=== PATIENT | female | born 1980 | race Caucasian/White ===

== ENCOUNTER 2017-12-25 06:24 | Day surgery (SDC) | payer OTHER ==
[2017-12-23 14:05] LABS: Hematocrit 42.3 % (36.0-45.0); MCH 32.4 pg (27.0-35.0); MCV 95.9 fL (80-100); RBC Red Blood Cell Count 4.41 M/uL (3.86-4.86)
[2017-12-23 14:06] LABS: Urine Appearance CLEAR; Urine Bilirubin NEGATIVE (NEG); Urine Blood 1+ (NEG); Urine Color YELLOW; Urine Glucose NEGATIVE (NEG); Urine Protein NEGATIVE (NEG); Urine Specific Gravity 1.015 (1.005-1.030); Urine Urobilinogen 0.2 mg/dL (0.2-1.0); Urine pH 5.5 (5.0-7.0)
[2017-12-23 14:06] LABS: Absolute Lymphocytes (CBC) 3.2 K/uL (0.7-4.9); Absolute Monocytes 0.7 K/uL (0.1-1.3); Absolute Neutrophil 6.7 K/uL (1.8-8.0); Basophils % 0.5 % (0-1.3); Eosinophils % 0.6 % (0-4.4); Lymphocytes % 29.9 % (15.3-44.8); MPV 8.1 fL (7.6-11.3); Monocytes % 6.2 % (3.3-12.3)
[2017-12-23 14:07] LABS: Urine Microscopic Reflex ORDER UMIC
[2017-12-23 14:36] LABS: Urine RBC <5 /HPF (NONE SEEN)
[2017-12-23 14:37] LABS: Urine Bacteria NONE SEEN /HPF (<20); Urine Culture Reflex Order REFLEXED
[2017-12-25] MEDS ORDERED: NA CHLORIDE 0.9% 0 ML ONE (06:44)
[2017-12-25] MEDS ORDERED: PROPOFOL 200 MG/20 ML VIAL IV ONE (06:45)
[2017-12-25] MEDS ORDERED: VASOPRESSIN 20 UNIT/ML VIAL ONE (06:45)
[2017-12-25] MEDS ORDERED: ROCURONIUM 50 MG/5 ML VIAL IV ONE ×2 (06:46→08:19)
[2017-12-25] MEDS ORDERED: FENTANYL CITR 250 MCG/5 ML ONE (06:47)
[2017-12-25] MEDS ORDERED: LIDOCAINE 2% MPF 5 ML VIAL ONE (06:47)
[2017-12-25] MEDS ORDERED: ONDANSETRON 4 MG/2 ML VIAL ONE ×2 (06:48→09:37)
[2017-12-25] MEDS ORDERED: SCOPOLAMINE HYDROBROMIDE PATCH TD ONE (07:03)
[2017-12-25] MEDS ORDERED: Ringers Lactate 1,000 ML IV ONE ×2 (07:04→09:35)
[2017-12-25] MEDS ORDERED: MIDAZOLAM HCL 2 MG/2 ML INJ ONE (07:25)
[2017-12-25] MEDS ORDERED: EPHEDRINE SULF 50 MG/5 ML SYR ONE (08:17)
[2017-12-25] MEDS ORDERED: DEXAMETHASONE 10 MG/ML VIAL ONE (08:27)
[2017-12-25] MEDS ORDERED: NS 0.9% VIAL 20 ML ONE (08:37)
[2017-12-25] MEDS ORDERED: Phenylephrine HCl 10 MG/ML 1 ML VIAL ONE (08:37)
[2017-12-25] MEDS ORDERED: MORPHINE 10 MG/ML VIAL ONE (09:13)
--- NOTE | 2017-12-25 09:16 | P.OP ---
Preoperative diagnosis: Possible Appendicitis Postoperative diagnosis: Possible Appendicitis Primary procedure: Laparoscopic Appendectomy Secondary procedure: see Dr. Grace Note Anesthesia: GETA Estimated blood loss: <1cc Specimen: Vermiform Appendix Findings: See Dr. Grace Note Complications: None Transferred to: Recovery Room Condition: Good
[2017-12-25] MEDS ORDERED: Mastisol Adhesive Liq ONE (09:18)
[2017-12-25] MEDS: MEPERIDINE HCL 50 MG/ML AMP ONE ×2 (09:37→09:52)
[2017-12-25] MEDS ORDERED: HYDROMORPHONE HCL 2 MG/ML inj ONE (09:47)
[2017-12-25] MEDS ORDERED: HYDROCODONE/APAP 5/325 MG TAB ONE (10:34)
--- NOTE | 2017-12-25 20:49 | OP ---
Date of Procedure: 12/25/2017 Surgeon: Balbina Grace MD Preoperative Diagnoses: Pelvic pain and heavy periods. Postoperative Diagnoses: Pelvic pain and heavy periods. Procedures Performed: 1.Diagnostic hysteroscopy. 2.Diagnostic laparoscopy and bilateral salpingectomy. Please refer to Dr. Fitzpatrick's dictation on her appendectomy. Anesthesia: General endotracheal. Complications: No complications. Drains: No drains. Specimens: Bilateral tubes, appendix. Condition: Stable. Findings: The ovaries were normal. Tubes had mild cystic change on both sides, very minimally incre ased in vascularity, left more than the right. No clear evidence of hydrosalpinx and no evidence of endometriosis on systematic examination of the entire pelvic cavity or adhesions. Description Of Procedure: After informed consent was verified, the patient was taken back to the OR, placed in supine fashion on the operating table. After general anesthesia was given, she was placed in dorsal lithotomy position. Pelvic exam was performed. Uterus was found to be anteflexed. No ad nexal masses were palpable and uterus was mobile. Lower abdomen, vulva, vagina, and perineum were pr epped and draped in a sterile fashion. Townsend was placed to drain the bladder. Speculum was used to expose the cervix. Anterior lip grasped with 2 Allis clamps. Diagnostic hysteroscopy with SlimLine hysteroscope, 30-degree lens, and normal saline was used to enter the uterine cavity directly under v isualization. The cavity appeared to be completely unremarkable. No evidence of any abnormalities, and the endometrium appeared to be normal without any intracavitary tumors. Both tubal ostia were vi sualized and were unremarkable. Pictures were taken. Scope pulled out. A diagnostic VCare was intr oduced and fixed in place, and this area was draped. A 1 cm infraumbilical incision was made with a scalpel. Using the open laparoscopy technique, fascia was incised, opened, and tagged on both sides with 0 Vicryl sutures. The peritoneum entered bluntly with a finger, and S-retractors placed and then Michelle was introduced. This was fixed in place. Si te of entry was checked and was normal. Upper abdominal surfaces liver, upper peritoneal surfaces, o mentum, all appeared to be unremarkable. The patient was placed in the T-eben. A 5 mm suprapubic an d left lower quadrant ports were placed under direct vision, and the inspection of the entire pelvic cavity systematically from the anterior cul-de-sac, both anterior broad ligaments. Area between the round and the tubes, the area between the tubes and the ovary and the utero-ovarian ligament were all systematically examined and completely unremarkable for endometriosis. Then posterior broad ligamen ts on both sides, posterior lateral verdugo, and posterior cul-de-sac and uterosacral ligaments were al l closely examined without any evidence of endometriosis or scar tissue. The normal attachment of th e sigmoid was present, but no additional scarring. Appendix appeared to be normal, however, given th e patient's pain and no particular etiology, I consulted Dr. Fitzpatrick, who had seen the patient yester day to come in and perform an appendectomy. The ovaries were also closely inspected, there was no evidence of any endometriosis and normal follic ular cyst. Tubes had cystic change and mild inflammation. There was a Falope ring on each side in t he midsection of the tube. I made the decision to remove the tubes because of the mild inflammatory changes and lack of other findings that would explain her pain. In case, there was past salpingitis since the patient was treated for PID and there was endometriosis on biopsy, I prefer to remove her t ubes, as the future source for her pain. So, a 5-mm LigaSure was used to take down the mesosalpinx, the entire fimbriated, and the tube was all taken down to the cornual end. First dissection was perf ormed on the left side, then similar dissection on the right side. Both tubes were removed through t he umbilical trocar after obtaining . At this point in the case was turned over to Dr. Viridiana moreira who finished appendectomy . VCare and Townsend were removed. The patient was recovered from anesthesia and taken to PACU in stable condition. She will follow up with me in 1 week. TRAY/WILMA Voice ID: [id number] Report ID: [id number]
--- NOTE | 2017-12-26 19:34 | OP ---
Date of Procedure: 12/25/2017 Surgeon: Donnell Fitzpatrick MD, Preoperative Diagnosis: Possible appendicitis. Postoperative Diagnosis: Possible appendicitis. Procedure Performed: Laparoscopic appendectomy. Secondary Procedure: I assisted Dr. Grace during her primary procedure. I was a surgical services assistant and that I performed the appendectomy as described above. Please see Dr. Grace's note for full de tails regarding her aspect of the operation. Anesthesia: General endotracheal. Estimated Blood Loss: Less than 1 cc. Specimen: Vermiform appendix. Findings: Please see Dr. Grace's note. Complications: None. Disposition: Transferred to recovery room in good condition. Procedure In Detail: After informed consent was obtained, the patient was had Dr. Grace's portion of the procedure. Please see her note for the prior procedure. At the end of Dr. Grace's proced ure, I was requested to come in. Three ports were in place. I used the existing ports, 1 in the per iumbilical, 1 in the suprapubic, and 1 in the left lower quadrant to create a mesoappendiceal window at the base the of appendix at the confluence of the cecum. I then used the Endo ANDRES 35 blue load, f ired across the base of the appendix with good approximation of the tissues. I then used the LigaSur e device to take the appendix off the mesoappendix with good hemostasis at this time. The base was p laced in EndoCatch bag and removed the umbilical trocar. The area was then copiously irrigated multi ple times until completely clear. I inspected the staple line at this time, which was found to be go od and intact without any evidence of leakage. No additional hemostatic maneuvers required. I then focused on the [address] Grace had some stay sutures in this area, which were prior place d. I then removed the trocar and secured these under direct visualization with good approximation of tissues. I then completely desufflated the abdomen under direct visualization without evidence of c omplication. After placing the patient in neutral position, all trocars then removed. All skin inci sions copiously irrigated and closed with a 4-0 Monocryl in a running fashion. Dermabond placed over top. The patient tolerated the procedure well without evidence of complication and transferred to P ACU in good condition. All counts were correct at the end of the case. JESSICA/WILMA Voice ID: [id number] Report ID: [id number]
== END 2017-12-25 11:30 | disposition home or self-care (01) ==
LOC: OR 06:24
PROVIDERS: ATTEND Obstetrics & Gynecology
PROC: 0DTJ4ZZ Resection of Appendix, Percutaneous Endoscopic Approach (ICD-10-PCS; principal; 2017-12-25 07:30)
PROC: 0UJD8ZZ Inspection of Uterus and Cervix, Via Natural or Artificial Opening Endoscopic (ICD-10-PCS; 2017-12-25 07:30)
PROC: 0UT74ZZ Resection of Bilateral Fallopian Tubes, Percutaneous Endoscopic Approach (ICD-10-PCS; 2017-12-25 07:30)
DX: N92.1 Excessive and frequent menstruation with irregular cycle (principal); R10.2 Pelvic and perineal pain; N94.6 Dysmenorrhea, unspecified; N83.8 Other noninflammatory disorders of ovary, fallopian tube and broad ligament; I10 Essential (primary) hypertension; F41.9 Anxiety disorder, unspecified; F32.9 Major depressive disorder, single episode, unspecified; F17.210 Nicotine dependence, cigarettes, uncomplicated; Z88.3 Allergy status to other anti-infective agents; Z88.6 Allergy status to analgesic agent; Z82.49 Family history of ischemic heart disease and other diseases of the circulatory system; Z80.3 Family history of malignant neoplasm of breast
CPT/HCPCS: 36415; 81003; 81015; 81025; 85025; 86850; 86900; 86901; 87086; 87088; 88302; 88304; 88305; J1100; J1170; J2175; J2250; J2370; J2405

== ENCOUNTER 2018-01-10 07:12 | Emergency (ER) | payer OTHER ==
[2018-01-10 07:55] LABS: Urine Blood TRACE (NEG); Urine Glucose NEGATIVE (NEG); Urine Protein NEGATIVE (NEG); Urine Specific Gravity 1.015 (1.005-1.030)
[2018-01-10 08:18] LABS: Absolute Lymphocytes (CBC) 3.1 K/uL (0.7-4.9); Absolute Monocytes 0.7 K/uL (0.1-1.3); Absolute Neutrophil 7.4 K/uL (1.8-8.0); Basophils % 0.4 % (0-1.3); Eosinophils % 0.8 % (0-4.4); Hematocrit 43.6 % (36.0-45.0); Lymphocytes % 27.7 % (15.3-44.8); MCH 31.8 pg (27.0-35.0); MCV 95.7 fL (80-100); MPV 8.3 fL (7.6-11.3); Monocytes % 6.3 % (3.3-12.3); RBC Red Blood Cell Count 4.55 M/uL (3.86-4.86)
[2018-01-10] MEDS ORDERED: PROMETHAZINE 25 MG/ML VIAL ONE (08:21)
[2018-01-10] MEDS ORDERED: MORPHINE 4 MG/ML SYR ONE (08:22)
[2018-01-10 08:26] LABS: Potassium 4.2 mEq/L (3.6-5.0)
[2018-01-10 08:32] LABS: Albumin 4.8 g/dL (3.2-5.5); Bilirubin Direct 0.1 mg/dL (0-0.2); Bilirubin Total 0.4 mg/dL (0.3-1.2); Protein, Total 7.6 g/dL (6.0-8.3)
[2018-01-10 08:46] LABS: Urine Bacteria <20 /HPF (<20); Urine Culture Reflex Order REFLEXED; Urine RBC <5 /HPF (NONE SEEN)
--- NOTE | 2018-01-10 10:13 | RAD REPORT ---
EXAM DESCRIPTION: CTAbdomen Pelvis W Contrast - 01/10/2018 9:50 am CLINICAL HISTORY: Abdominal pain. Pelvic pain. COMPARISON: 12/06/2017 TECHNIQUE: Biphasic CT imaging of the abdomen and pelvis was performed with 100 ml non-ionic IV cont rast. All CT scans are performed using dose optimization technique as appropriate and may include automated exposure control or mA/KV adjustment according to patient size. FINDINGS: The lung bases are clear.Small hiatal hernia. Mild diffuse fatty liver is present. 4 mm low-density lesion in the right lobe of the liver is presen t, nonspecific but likely benign. The spleen, pancreas, adrenal glands and kidneys are within normal limits. No bowel obstruction, free air, free fluid or abscess. Appendectomy noted. No evidence of significa nt lymphadenopathy. No suspicious bony findings. IMPRESSION: No acute intra-abdominal or pelvic finding. Mild fatty liver. Small hiatal hernia.
--- NOTE | 2018-01-10 11:36 | ER ---
Nurse's Notes [facility] Name: Madai Montejo Age: 38 yrs Sex: Female : 1980 Arrival Date: 01/10/2018 Time: 07:13 Bed 19 Private MD: Diagnosis: Unspecified abdominal pain Presentation: 01/10 07:20 Presenting complaint: Patient states: pelvic pain and coccyx pain that began Saturday. aa5 Pt states "I had an exploratory surgery December 25 and they removed both of my fallopian tubes and appendix". Pt denies vaginal bleeding, denies vaginal discharge. Pt reports nausea, denies V/D. 07:20 Transition of care: patient was not received from another setting of care. Onset of aa5 symptoms was December 2017. Initial Sepsis Screen: Does the patient meet any 2 criteria? No. Patient's initial sepsis screen is negative. Does the patient have a suspected source of infection? No. Patient's initial sepsis screen is negative. Care prior to arrival: None. 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 - Social history:: Smoking status: Patient/guardian denies using tobacco. Screenin:32 Abuse screen: Denies threats or abuse. Nutritional screening: No deficits noted. aa5 Tuberculosis screening: No symptoms or risk factors identified. Fall Risk None identified. Assessment: 07:20 General: Appears uncomfortable, Behavior is calm, cooperative. Pain: Complains of pain aa5 in sacrum and pelvis Pain radiates to right leg and left leg Pain currently is 8 out of 10 on a pain scale. Quality of pain is described as throbbing, Pain began Saturday. Pt states "I also had the pain before the surgery but it went away and it came back Saturday" Is continuous. Neuro: Level of Consciousness is awake, alert, obeys commands, Oriented to person, place, time, situation. Cardiovascular: Patient's skin is warm and dry. Respiratory: Airway is patent Respiratory effort is even, unlabored, Respiratory pattern is regular, symmetrical. GI: Abdomen is round non-distended, Bowel sounds present X 4 quads. Abd is soft and non tender X 4 quads. Reports nausea, Patient currently denies diarrhea, vomiting. : Reports urinary frequency, on and off x 2 weeks ago. EENT: No signs and/or symptoms were reported regarding the EENT system. Derm: Skin is pink, warm \\T\\ dry. Musculoskeletal: Range of motion: intact in all extremities. 08:08 Reassessment: Pt completed CT oral contrast, CT notified . aa5 08:45 Reassessment: Patient and/or family updated on plan of care and expected duration. Pain aa5 level reassessed. Patient is alert, oriented x 3, equal unlabored respirations, skin warm/dry/pink. Patient states feeling better. Pain: Pain currently is 6 out of 10 on a pain scale. 09:38 Reassessment: Pt resting in bed with eyes closed, respirations even and unlabored. aa5 [address] scan . 10:19 Reassessment: Patient appears in no apparent distress at this time. Patient and/or ed1 family updated on plan of care and expected duration. Pain level reassessed. Patient is alert, oriented x 3, equal unlabored respirations, skin warm/dry/pink. Patient states feeling better. Patient states symptoms have improved. 11:18 Reassessment: Patient appears in no apparent distress at this time. No changes from ed1 previously documented assessment. Patient and/or family updated on plan of care and expected duration. Pain level reassessed. Patient is alert, oriented x 3, equal unlabored respirations, skin warm/dry/pink. Vital Signs: 07:22 BP 128 / 99; Pulse 102; Resp 18 S; Temp 97.5(O); Pulse Ox 98% on R/A; Weight 69.85 kg aa5 (R); Height 5 ft. 6 in. (167.64 cm) (R); Pain 8/10; 09:00 BP 127 / 81; Pulse 81; Resp 18 S; Pulse Ox 98% on R/A; aa5 10:19 BP 121 / 91; Pulse 85; Resp 18; Pulse Ox 100% on R/A; Pain 6/10; ed1 11:18 BP 117 / 86; Pulse 90; Resp 18; Pulse Ox 100% on R/A; Pain 6/10; ed1 07:22 Body Mass Index 24.86 (69.85 kg, 167.64 cm) aa5 ED Course: 07:13 Patient arrived in ED. ds1 07:19 Nury Restrepo, RN is Primary Nurse. aa5 07:20 Arm band placed on Patient placed in an exam room, on a stretcher. aa5 07:20 Patient has correct armband on for positive identification. Placed in gown. Bed in low aa5 position. Call light in reach. Side rails up X2. Adult w/ patient. 07:30 Triage completed. aa5 07:32 Trent Garcia NP is PHCP. pm1 07:32 Suleman Vasquez MD is Attending Physician. pm1 08:00 Initial lab(s) drawn, by pr, sent to lab. Inserted saline lock: 20 gauge in right aa5 antecubital area, using aseptic technique. Blood collected. 08:43 No provider procedures requiring assistance completed. aa5 09:47 CT completed. Patient tolerated procedure well. Patient moved to CT via wheelchair. jg1 Patient moved back from CT. 09:49 CT Abd/Pelvis - W/Contrast In Process Unspecified. EDMS 09:58 Primary Nurse role handed off by Nury Restrepo, KOKO ed1 09:58 Lidia Sequeira LVN is Primary Nurse. ed1 10:00 Report given to TAVO Murillo. aa5 11:18 Resting quietly. Awaiting disposition. ed1 11:35 Jacque Garcia MD is Referral Physician. pm1 11:37 Referral Physician role handed off by Jacque Garcia MD pm1 12:04 IV discontinued, intact, bleeding controlled, No redness/swelling at site. Pressure ed1 dressing applied. Administered Medications: 08:20 Drug: Phenergan 12.5 mg Route: IVP; Site: right antecubital; aa5 08:45 Follow up: Response: No adverse reaction aa5 08:22 Drug: morphine 4 mg Route: IVP; Site: right antecubital; aa5 08:45 Follow up: Response: No adverse reaction aa5 Outcome: 11:36 Discharge ordered by . pm1 12:04 Discharged to home ambulatory, with family. ed1 12:04 Condition: good 12:04 Discharge instructions given to patient, Instructed on discharge instructions, follow up and referral plans. medication usage, Demonstrated understanding of instructions, follow-up care, medications, Prescriptions given X 2. 12:05 Patient left the ED. ed1 Signatures: Dispatcher [employer] EDMS Power Leticia jg1 Fern De Leon ds1 Nury Restrepo RN RN aa5 Lidia Sequeira LVN HOME STAGING SPECIALIST ed1 Trent Garcia, DANYELL MANUFACTURING HELPER pm1
--- NOTE | 2018-01-10 11:36 | EDPHYS ---
Physician Documentation [facility] Name: Madai Montejo Age: 38 yrs Sex: Female : 1980 Arrival Date: 01/10/2018 Time: 07:13 Bed 19 Private MD: ED Physician Suleman Vasquez HPI: 01/10 08:30 This 38 yrs old Female presents to ER via Ambulatory with complaints of pm1 Pelvic Pain. 08:30 The patient presents with abdominal pain Suprapubic area. pm1 08:30 Onset: The symptoms/episode began/occurred 6 day(s) ago. The symptoms do not radiate. pm1 Associated signs and symptoms: Pertinent positives: urinary frequency and pressure, Pertinent negatives: nausea, vomiting, and diarrhea, fever. The symptoms are described as achy. Modifying factors: The symptoms are alleviated by nothing, the symptoms are aggravated by nothing. pain was present since August of last year and resolved after surgery on December 25. Pain has returned for the past 6 days. Patient had an appendectomy and salpingectomy on December [address] Gottlieb. 08:30 Pain to lower tailbone. No pain with BM. 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 - Social history:: Smoking status: Patient/guardian denies using tobacco. ROS: 08:30 Constitutional: Negative for fever, chills, and weight loss, Eyes: Negative for injury, pm1 pain, redness, and discharge, ENT: Negative for injury, pain, and discharge, Neck: Negative for injury, pain, and swelling, Cardiovascular: Negative for chest pain, palpitations, and edema, Respiratory: Negative for shortness of breath, cough, wheezing, and pleuritic chest pain. 08:30 Abdomen/GI: Positive for abdominal pain, of the suprapubic area. 08:30 Back: Negative for injury. Pain at coccyx : Negative for injury, bleeding, pm1 discharge, and swelling, MS/Extremity: Negative for injury and deformity, Skin: Negative for injury, rash, and discoloration, Neuro: Negative for headache, weakness, numbness, tingling, and seizure. Exam: 08:30 Constitutional: This is a well developed, well nourished patient who is awake, alert, pm1 and in no acute distress. Head/Face: Normocephalic, atraumatic. Eyes: Pupils equal round and reactive to light, extra-ocular motions intact. Lids and lashes normal. Conjunctiva and sclera are non-icteric and not injected. Cornea within normal limits. Periorbital areas with no swelling, redness, or edema. ENT: Nares patent. No nasal discharge, no septal abnormalities noted. Tympanic membranes are normal and external auditory canals are clear. Oropharynx with no redness, swelling, or masses, exudates, or evidence of obstruction, uvula midline. Mucous membranes moist. Neck: Trachea midline, no thyromegaly or masses palpated, and no cervical lymphadenopathy. Supple, full range of motion without nuchal rigidity, or vertebral point tenderness. No Meningismus. Chest/axilla: Normal chest wall appearance and motion. Nontender with no deformity. No lesions are appreciated. Cardiovascular: Regular rate and rhythm with a normal S1 and S2. No gallops, murmurs, or rubs. Normal PMI, no JVD. No pulse deficits. Respiratory: Lungs have equal breath sounds bilaterally, clear to auscultation and percussion. No rales, rhonchi or wheezes noted. No increased work of breathing, no retractions or nasal flaring. Abdomen/GI: Soft, non-tender, with normal bowel sounds. No distension or tympany. No guarding or rebound. No evidence of tenderness throughout. Back: No spinal tenderness. No costovertebral tenderness. Full range of motion. Skin: Warm, dry with normal turgor. Normal color with no rashes, no lesions, and no evidence of cellulitis. MS/ Extremity: Pulses equal, no cyanosis. Neurovascular intact. Full, normal range of motion. 08:30 Neuro: Orientation: is normal, Motor: moves all fours. Vital Signs: 07:22 BP 128 / 99; Pulse 102; Resp 18 S; Temp 97.5(O); Pulse Ox 98% on R/A; Weight 69.85 kg aa5 (R); Height 5 ft. 6 in. (167.64 cm) (R); Pain 8/10; 09:00 BP 127 / 81; Pulse 81; Resp 18 S; Pulse Ox 98% on R/A; aa5 10:19 BP 121 / 91; Pulse 85; Resp 18; Pulse Ox 100% on R/A; Pain 6/10; ed1 11:18 BP 117 / 86; Pulse 90; Resp 18; Pulse Ox 100% on R/A; Pain 6/10; ed1 07:22 Body Mass Index 24.86 (69.85 kg, 167.64 cm) aa5 MDM: 07:33 Patient medically screened. pm1 11:30 ED course: patient requested a referral to another physician besides Dr. Grace. 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 11:34 Data reviewed: vital signs. Data interpreted: Pulse oximetry: on room air is 100 %. pm1 Interpretation: normal. Counseling: I had a detailed discussion with the patient and/or guardian regarding: the historical points, exam findings, and any diagnostic results supporting the discharge/admit diagnosis, lab results, radiology results, the need for outpatient follow up, to return to the emergency department if symptoms worsen or persist or if there are any questions or concerns that arise at home. 01/10 07:46 Order name: Basic Metabolic Panel; Complete Time: 08:40 pm01/10 07:46 Order name: CBC with Diff; Complete Time: 08:40 pm01/10 07:46 Order name: Hepatic Function; Complete Time: 08:40 pm01/10 07:46 Order name: Lipase; Complete Time: 08:40 pm01/10 07:46 Order name: Urine Microscopic Only; Complete Time: 09:56 pm1 01/10 07:53 Order name: Urine Dipstick--Ancillary (enter results); Complete Time: 08:13 01/10 07:46 Order name: IV Saline Lock; Complete Time: 08:08 pm01/10 07:46 Order name: Labs collected and sent; Complete Time: 08:08 pm01/10 07:46 Order name: Urine Dipstick-Ancillary (obtain specimen); Complete Time: 08:08 pm01/10 07:48 Order name: CT Abd/Pelvis - W/Contrast; Complete Time: 10:16 pm1 01/10 07:53 Order name: Urine --Ancillary (enter results); Complete Time: 08:13 eb 01/10 08:46 Order name: Urine Culture EDMS Administered Medications: 08:20 Drug: Phenergan 12.5 mg Route: IVP; Site: right antecubital; aa5 08:45 Follow up: Response: No adverse reaction aa5 08:22 Drug: morphine 4 mg Route: IVP; Site: right antecubital; aa5 08:45 Follow up: Response: No adverse reaction aa5 Disposition: 01/10/18 11:36 Discharged to Home. Impression: Unspecified abdominal pain. - Condition is Stable. - Discharge Instructions: Abdominal Pain, Adult. - Prescriptions for Tylenol- Codeine #3 300-30 mg Oral Tablet - take 2 tablets by ORAL route every 6 hours As needed; 20 tablet. promethazine 25 mg Oral Tablet - take 1 tablet by ORAL route every 6 hours As needed; 20 tablet. - Medication Reconciliation Form, Thank You Letter, Prescription Opioid Use form. - Follow up: Jacque Garcia MD; When: 2 - 3 days; Reason: Recheck today's complaints, Continuance of care, Re-evaluation by your physician. Follow up: Emergency Department; When: As needed; Reason: Worsening of condition. Follow up: Private Physician; When: 2 - 3 days; Reason: Recheck today's complaints, Continuance of care, Re-evaluation by your physician. - Problem is new. - Symptoms have improved. Addendum: 01/12/2018 10:41 Co-signature as Attending Physician, Suleman Vasquez MD I agree with the assessment and w a plan of care. Signatures: Dispatcher [employer] EDMS Nury Restrepo, RN RN aa5 Lidia Sequeira, CLEAT FEEDER CLEAT FEEDER ed1 Trent Garcia, ENTERTAINMENT LAWYER ENTERTAINMENT LAWYER pm1 Suleman Vasquez MD MD pa Corrections: (The following items were deleted from the chart) 01/10 11:38 11:36 01/10/2018 11:36 Discharged to Home. Impression: Unspecified abdominal pain. pm1 Condition is Stable. Forms are Medication Reconciliation Form, Thank You Letter, Antibiotic Education, Prescription Opioid Use. Follow up: Jacque Garcia; When: 2 - 3 days; Reason: Recheck today's complaints, Continuance of care, Re-evaluation by your physician. Problem is new. Symptoms have improved. pm1 12:05 11:38 01/10/2018 11:36 Discharged to Home. Impression: Unspecified abdominal pain. ed1 Condition is Stable. Discharge Instructions: Abdominal Pain, Adult. Prescriptions for Tylenol-Codeine #3 300-30 mg Oral Tablet - take 2 tablets by ORAL route every 6 hours As needed; 20 tablet, promethazine 25 mg Oral Tablet - take 1 tablet by ORAL route every 6 hours As needed; 20 tablet. and Forms are Medication Reconciliation Form, Thank You Letter, Prescription Opioid Use. Follow up: Emergency Department; When: As needed; Reason: Worsening of condition. Follow up: Private Physician; When: 2 - 3 days; Reason: Recheck today's complaints, Continuance of care, Re-evaluation by your physician. Problem is new. Symptoms have improved. pm1
== END 2018-01-10 12:05 | disposition home or self-care (01) ==
LOC: ER 07:12
DX: R10.9 Unspecified abdominal pain (principal); I10 Essential (primary) hypertension; Z88.3 Allergy status to other anti-infective agents
CPT/HCPCS: 36415; 74177; 80048; 80076; 81003; 81015; 81025; 83690; 85025; 87086; 87088; 96374; 96375; 99284; J2550; Q9967

== ENCOUNTER 2020-03-28 16:36 | Emergency (ER) | payer OTHER ==
[2020-03-28 17:17] LABS: Absolute Lymphocytes (CBC) 3.1 K/uL (0.7-4.9); Basophils % 0.5 % (0-1.3); Hematocrit 43.2 % (36.0-45.0); Lymphocytes % 25.7 % (15.3-44.8); MPV 8.2 fL (7.6-11.3); RBC Red Blood Cell Count 4.52 M/uL (3.86-4.86)
[2020-03-28 17:31] LABS: Potassium 3.7 mmol/L (3.5-5.1)
--- NOTE | 2020-03-28 17:42 | RAD REPORT ---
EXAM DESCRIPTION: CT - Chest For Pe Angio - 03/28/2020 5:20 pm CLINICAL HISTORY: recent COVID +;Chest pain COMPARISON: No comparisons TECHNIQUE: Dynamically enhanced 3 mm thick images of the chest were obtained during administration o f approximately 150mL Isovue 370 IV contrast. Coronal and oblique MIP reconstruction images were gene rated and reviewed. Exam utilizes a protocol to evaluate the pulmonary arterial tree. All CT scans are performed using dose optimization technique as appropriate and may include automated exposure control or mA/KV adjustment according to patient size. FINDINGS: No pulmonary emboli are identified. The aorta as imaged shows no acute or suspicious finding. No pericardial thickening or effusion. No consolidation, mass or ground-glass opacification in the lung tripathi. Dependent atelectasis seen i n each posterior lower lobe. Granuloma seen in the superior segment right lower lobe. No pleural effu rajendra or pleural thickening. No mediastinal or hilar suspicious masses. No chest wall masses or abnormal axillary lymphadenopathy. Patient has bilateral breast implants in place. IMPRESSION: No pulmonary emboli identified. No acute lung parenchymal finding. No CT findings to indicate a COVID-19 or other pneumonia.
--- NOTE | 2020-03-28 18:04 | RAD REPORT ---
EXAM DESCRIPTION: RAD - Chest Single View - 03/28/2020 5:32 pm CLINICAL HISTORY: CHEST PAIN, right-sided chest COMPARISON: CT chest same date TECHNIQUE: AP portable chest image was obtained 03/28/2020 5:32 pm . FINDINGS: Lungs are clear. Heart and vasculature are normal. No measurable pleural effusion and no p neumothorax. No acute bony abnormality seen. No acute aortic findings suspected. IMPRESSION: No acute cardiopulmonary process.
--- NOTE | 2020-03-28 18:23 | ER ---
Nurse's Notes [facility] Name: Madai Montejo Age: 40 yrs Sex: Female : 1980 Arrival Date: 03/28/2020 Time: 16:38 Bed 5 Private MD: Diagnosis: Chest pain, unspecified Presentation: 03/28 17:00 Acuity: MOUSTAPHA 2 ls4 17:00 Chief complaint: Patient states: I TESTED POSITIVE FOR COVID 14 DAYS AGO. I HAVE ls4 PRESSURE IN MY CHEST THAT IS NEW. Coronavirus screen: Patient denies a cough. Patient denies shortness of breath or difficulty breathing. Patient denies measured and/or subjective temperature greater than 100.4F prior to today's visit. Patient denies travel on a cruise ship or to a country the [facility] currently lists as an affected area. Patient denies contact with known and/or suspected case of COVID-19. Ebola Screen: No symptoms or risks identified at this time. Initial Sepsis Screen: Does the patient meet any 2 criteria? No. Patient's initial sepsis screen is negative. Does the patient have a suspected source of infection? No. Patient's initial sepsis screen is negative. Risk Assessment: Do you want to hurt yourself or someone else? Patient reports no desire to harm self or others. Onset of symptoms was March 28, 2020. Care prior to arrival: None. Activity prior to arrival: None. 17:00 Method Of Arrival: Ambulatory ls4 Triage Assessment: 17:00 General: Appears in no apparent distress. Behavior is calm, cooperative. Pain: ls4 Complains of pain in right clavicle, anterior aspect of right upper chest and anterior aspect of left upper chest Pain currently is 5 out of 10 on a pain scale. Cardiovascular: Denies diaphoresis, fatigue, lightheadedness, nausea, palpitations, syncope, vomiting. Respiratory: Airway is patent Respiratory effort is even, unlabored, Respiratory pattern is regular. 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 - Family history:: not pertinent. - Social history:: Smoking status: unknown. - Hospitalizations: : No recent hospitalization is reported. Screenin:18 Abuse screen: Denies threats or abuse. Denies injuries from another. Nutritional ls4 screening: No deficits noted. Tuberculosis screening: No symptoms or risk factors identified. Fall Risk None identified. Assessment: 17:50 Reassessment: Patient appears in no apparent distress at this time. Patient and/or ls4 family updated on plan of care and expected duration. Pain level reassessed. Patient is alert, oriented x 3, equal unlabored respirations, skin warm/dry/pink. General: Appears in no apparent distress. uncomfortable, Behavior is calm, cooperative. Pain: Pain does not radiate. Pain: Complains of pain in chest Pain began 1 day ago. 18:54 Reassessment: Patient appears in no apparent distress at this time. Patient and/or ls4 family updated on plan of care and expected duration. Pain level reassessed. Patient is alert, oriented x 3, equal unlabored respirations, skin warm/dry/pink. Vital Signs: 17:11 BP 127 / 98; Pulse 127; Resp 18; Temp 98.2(O); Pulse Ox 100% ; Weight 65.77 kg; Height mh5 5 ft. 6 in. (167.64 cm); 17:48 BP 128 / 95; Pulse 108; Resp 16; Pulse Ox 99% on R/A; Pain 3/10; ls4 18:11 BP 128 / 94; Pulse 109; Resp 22; Temp 98.9(O); Pulse Ox 100% on R/A; mh5 18:30 BP 136 / 99; Pulse 106; Resp 16; Temp 98.4; Pulse Ox 99% on R/A; Pain 3/10; ls4 17:11 Body Mass Index 23.40 (65.77 kg, 167.64 cm) 5 ED Course: 16:38 Patient arrived in ED. ag5 16:44 Dinh Costa MD is Attending Physician. rn 17:00 No apparent distress. ls4 17:00 No provider procedures requiring assistance completed. Inserted saline lock: 20 gauge ls4 in left antecubital area, using aseptic technique. Blood collected. 17:00 Patient maintains SpO2 saturation greater than 95% on room air. ls4 17:03 Patient has correct armband on for positive identification. Placed in gown. Bed in low 5 position. Call light in reach. Side rails up X 1. Warm blanket given. program project analyst on. Pulse ox on. NIBP on. 17:03 EKG done, by ED staff, reviewed by Dinh Costa MD. 5 17:12 Zenaida Mccabe, RN is Primary Nurse. ls4 17:21 CT Chest For PE Angio In Process Unspecified. EDMS 17:32 XRAY Chest (1 view) In Process Unspecified. EDMS 17:40 Triage completed. ls4 17:56 Arm band placed on. ls4 18:55 Patient did not have IV access during this emergency room visit. IV discontinued, ls4 intact, bleeding controlled, No redness/swelling at site. Pressure dressing applied. Administered Medications: No medications were administered Outcome: 18:22 Discharge ordered by . rn 18:55 Patient left the ED. ls4 Signatures: Dispatcher [employer] EDAK Dinh Costa MD MD rn Martinez, [facility] Zenaida Mccabe, KOKO RN 4 Edward Basurto [facility]
--- NOTE | 2020-03-28 18:23 | EDPHYS ---
Physician Documentation [facility] Name: Madai Montejo Age: 40 yrs Sex: Female : 1980 Arrival Date: 03/28/2020 Time: 16:38 Bed 5 Private MD: ED Physician Dinh Costa HPI: 03/28 16:58 This 40 yrs old Female presents to ER via Unassigned with complaints of Chest rn Pain. 16:58 The patient or guardian reports chest pain that is located primarily in the anterior rn chest wall, right. The pain does not radiate. Associated signs and symptoms: Pertinent positives: None. Pertinent negatives: abdominal pain, cough, shortness of breath, syncope. The chest pain is described as aching. Duration: The patient or guardian reports multiple episodes, that are intermittent. 16:59 Severity of pain: At its worst the pain was mild in the emergency department the pain rn is unchanged. The patient has not experienced similar symptoms in the past. Reports recent COVID test positive 2 weeks ago, last week tested negative, reports a few days of right sided chest pain, non-radiating, no cough/sob. Reports worse when palpating right upper/outer chest. NO trauma. No abd pain.. 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 - Family history:: not pertinent. - Social history:: Smoking status: unknown. - Hospitalizations: : No recent hospitalization is reported. ROS: 17:00 Constitutional: Negative for fever, chills, and weight loss, Eyes: Negative for injury, rn pain, redness, and discharge, Neck: Negative for injury, pain, and swelling, Cardiovascular: Negative for palpitations, and edema, Respiratory: Negative for shortness of breath, cough, wheezing, and pleuritic chest pain, Abdomen/GI: Negative for abdominal pain, nausea, vomiting, diarrhea, and constipation, MS/Extremity: Negative for injury and deformity, Skin: Negative for injury, rash, and discoloration, Neuro: Negative for headache, weakness, numbness, tingling, and seizure. Exam: 17:00 Constitutional: This is a well developed, well nourished patient who is awake, alert, rn and in no acute distress. Ambulatory to room without difficulty or assistance. Head/Face: Normocephalic, atraumatic. Cardiovascular: Regular rate and rhythm. No pulse deficits. Respiratory: Speaking sull sentences. No increased work of breathing, no retractions or nasal flaring. Abdomen/GI: soft, non-tender Skin: Warm, dry MS/ Extremity: Pulses equal, no cyanosis. Neurovascular intact. Full, normal range of motion. Equal circumference. Neuro: Awake and alert, GCS 15 17:00 ECG was reviewed by the Attending Physician. Vital Signs: 17:11 BP 127 / 98; Pulse 127; Resp 18; Temp 98.2(O); Pulse Ox 100% ; Weight 65.77 kg; Height mh5 5 ft. 6 in. (167.64 cm); 17:48 BP 128 / 95; Pulse 108; Resp 16; Pulse Ox 99% on R/A; Pain 3/10; ls4 18:11 BP 128 / 94; Pulse 109; Resp 22; Temp 98.9(O); Pulse Ox 100% on R/A; mh5 18:30 BP 136 / 99; Pulse 106; Resp 16; Temp 98.4; Pulse Ox 99% on R/A; Pain 3/10; ls4 17:11 Body Mass Index 23.40 (65.77 kg, 167.64 cm) 5 MDM: 16:44 Patient medically screened. rn 18:21 Differential diagnosis: acute myocardial infarction, chest wall pain, costochondritis, rn pleurisy, pneumonia, pneumothorax, pulmonary embolus. Data reviewed: vital signs, nurses notes, lab test result(s), EKG, radiologic studies, CT scan, plain films, and as a result, I will discharge patient. Counseling: I had a detailed discussion with the patient and/or guardian regarding: the historical points, exam findings, and any diagnostic results supporting the discharge/admit diagnosis, lab results, radiology results, the need for outpatient follow up, to return to the emergency department if symptoms worsen or persist or if there are any questions or concerns that arise at home. Special discussion: Based on the patient's history, exam, and Dx evaluation, there is no indication for emergent intervention or inpatient Tx. It is understood by the patient/guardian that if the Sx's persist or worsen they need to return immediately for re-evaluation. I discussed with the patient/guardian in detail that at this point there is no indication for admission to the hospital. It is understood, however, that if the symptoms persist or worsen the patient needs to return immediately for re-evaluation. ED course: CXR and CT PE neg for acute finding, could be chest wall pain, + smoker, no secondary signs of COVID sequelae. Will dc home with return precautions. . 03/28 16:57 Order name: CBC with Diff; Complete Time: 17:49 rn 03/28 16:57 Order name: Basic Metabolic Panel; Complete Time: 17:49 rn 03/28 16:57 Order name: XRAY Chest (1 view); Complete Time: 18:08 rn 03/28 17:29 Order name: CREATININE WHOLE BLOOD; Complete Time: 17:49 EDMS 03/28 17:52 Order name: Add On-Lab bd 03/28 18:07 Order name: Troponin (Emerg Dept Use Only); Complete Time: 18:42 EDMS 03/28 16:57 Order name: IV Start; Complete Time: 18:09 rn 03/28 16:57 Order name: CT Chest For PE Angio; Complete Time: 17:49 rn 03/28 16:57 Order name: EKG; Complete Time: 16:57 rn 03/28 16:57 Order name: EKG - Nurse/Tech; Complete Time: 17:03 rn EC:00 Rate is 122 beats/min. Rhythm is regular. QRS Philipp is Normal. CO interval is normal. rn QRS interval is normal. QT interval is normal. No Q waves. T waves are Normal. No ST changes noted. Clinical impression: Sinus tachycardia. Interpreted by me. Reviewed by me. Administered Medications: No medications were administered Disposition: 03/28/20 18:22 Discharged to Home. Impression: Chest pain, unspecified. - Condition is Stable. - Discharge Instructions: Nonspecific Chest Pain, Chest Wall Pain. - Medication Reconciliation Form, Thank You Letter, Antibiotic Education, Prescription Opioid Use, Work release form form. - Follow up: Private Physician; When: As needed; Reason: Recheck today's complaints, Re-evaluation by your physician. - Problem is new. - Symptoms have improved. Signatures: Dispatcher [employer] EDDinh Henriquez MD MD rn Stewart, Lisa, RN RN ls4 Corrections: (The following items were deleted from the chart) 18:55 18:22 03/28/2020 18:22 Discharged to Home. Impression: Chest pain, unspecified. ls4 Condition is Stable. Forms are Medication Reconciliation Form, Thank You Letter, Antibiotic Education, Prescription Opioid Use. Follow up: Private Physician; When: As needed; Reason: Recheck today's complaints, Re-evaluation by your physician. Problem is new. Symptoms have improved. rn
--- OUTSIDE RECORDS SUMMARY | 2020-03-28 18:53 | XMS REPORT | Summary of Care ---
:1980 Author Organization [facility] - [facility] Address [address] [place] [address] Care Team Providers Name Role Phone Pcp, Does Not Have A Primary Care Provider Reason for Visit Reason Comments Results Encounter Details Date Type Department Care Team Description 03/13/2020 Telephone [facility] Pcp, Patient Does Not Results [address] [facility] [place] [address] 301 [facility] [phone] [place], [place] [address] Allergies Active Allergy Reactions Severity Noted Date Comments Clindamycin Rash 06/11/2018 documented as of this encounter (statuses as of 03/13/2020) Medications Medication Sig Dispensed Refills Start Date End Date Status lisinopril 10 mg tablet Take 10 mg by 0 Active mouth daily. GABAPENTIN ORAL Take 600 mg by 0 Active mouth 2 (two) times daily. acetaminophen with Take 1 tablet by 0 Active codeine (TYLENOL-CODEINE mouth 4 (four) #4 ORAL) times daily as needed. dextroamphetamine-amphet Take 20 mg by 0 Active amine (ADDERALL) 20 mg mouth daily. tablet trazodone HCl (TRAZODONE Take 50 mg by 0 Active ORAL) mouth at bedtime. tiZANidine 4 mg tablet Take 4 mg by 0 Active mouth every 6 (six) hours as needed. documented as of this encounter (statuses as of 03/13/2020) Active Problems Not on filedocumented as of this encounter (statuses as of 03/13/2020) Social History Tobacco Use Types Packs/Day Years Used Date Current Every Day Smoker Cigarettes Smokeless Tobacco: Never Used Alcohol Use Drinks/Week oz/Week Comments No Sex Assigned at Date Recorded Not on file Job Start Date Occupation Industry Not on file Not on file Not on file Travel History Travel Start Travel End No recent travel history available. documented as of this encounter Last Filed Vital Signs Not on filedocumented in this encounter Plan of Treatment Health Maintenance Due Date Last Done Comments DTaP,Tdap,and Td Vaccines (1 - 01/05/1992 Tdap) Depression Screening 1993 PAP SMEAR 2002 INFLUENZA VACCINE (#1) 2020 PNEUMOCOCCAL 0-64 YEARS COMBINED Aged Out No longer eligible based on SERIES patient's age to complete this topic documented as of this encounter Results Not on filedocumented in this encounter Additional Health Concerns Infection Onset Date Last Indicated Resolved Time COVID-19 Rule Out 03/11/2020 03/11/2020 03/13/2020 3: 19 PM CDT COVID-19 Confirmed 03/11/2020 03/11/2020 documented as of this encounter Insurance Payer Benefit Plan / Subscriber ID Effective Dates Phone Addre ss Type Group [facility] [id number] 2018-Present PPO/POS documented as of this encounter
--- OUTSIDE RECORDS SUMMARY | 2020-03-28 18:53 | XMS REPORT | Summary of Care ---
:1980 Author Organization [facility] - [facility] Address [address] [place] [address] Care Team Providers Name Role Phone Pcp, Does Not Have A Primary Care Provider Reason for Visit Reason Comments Results Encounter Details Date Type Department Care Team Description 03/13/2020 Telephone [facility] Family Medicine Randall Palmer FNP Results - [place] [address] [place], [place] [address] [place] [phone] Allergies Active Allergy Reactions Severity Noted Date [...] Effective Dates Phone Addre ss Type Group [facility] [id number] 2018-Present PPO/POS documented as of this encounter
--- OUTSIDE RECORDS SUMMARY | 2020-03-28 18:53 | XMS REPORT | Continuity of Care Document ---
:1980 Author Organization [facility] t Address [address] [place] [address] Care Team Providers Name Role Phone Pcp, Does Not Have A Attending Clinician [facility] MALI Attending Clinician Lab, Fam Pob I Attending Clinician Unavailable Problems This patient has no known problems. Allergies, Adverse Reactions, Alerts This patient has no known allergies or adverse reactions. Medications This patient has no known medications. Procedures This patient has no known procedures. Encounters Start End Encounter Admission Attending Care Care Encounter Source Date/Time Date/Time Type Type Clinicians Facility Department ID 2020-03-13 2020-03-13 Telephone [facility] Em [id number] 00:00:00 00:00:00 Patient HARPAL [id number] Does Not [facility] [id number] Have A [id number] 2020-03-13 2020-03-13 Telephone [facility] [id number] 00:00:00 00:00:00 [facility] [id number] [place] [id number] essjennifer [phone] nal [address] 2020-03-11 2020-03-11 Laboratory Lab, [facility] [id number] 16:40:34 17:00:34 Only Fam Pob I Health [id number] [place] [id number] Profmamie [phone] nal [address] Results This patient has no known results.
--- OUTSIDE RECORDS SUMMARY | 2020-03-28 18:53 | XMS REPORT | Summary of Care ---
:1980 Author Organization [facility] - [facility] Address [address] [place] [address] Care Team Providers Name Role Phone Pcp, Does Not Have A Primary Care Provider Reason for Visit Reason Comments Exposure LAB Encounter Details Date Type Department Care Team Description 03/11/2020 Laboratory Only [facility] Family Radha Palomo, MACHINE CONTAINER WASHER [address] [place] [address] [phone] Exposure to Covid-19 [facility] Lab, Adc Fam Pob I Virus (Primary Dx) [address] [place] [address] Allergies Active Allergy Reactions Severity Noted Date Comments Clindamycin Rash 06/11/2018 documented as of this encounter (statuses as of 03/11/2020) Medications Medication Sig Dispensed Refills Start Date [...] as of this encounter (statuses as of 03/11/2020) Active Problems Not on filedocumented as of this encounter (statuses as of 03/11/2020) Social History Tobacco Use Types Packs/Day Years [...] filedocumented in this encounter Plan of Treatment Name Type Priority Associated Diagnoses Order S chedule COVID-19 (PCR MOLECULAR LAB Routine Exposure to Covid -19 Expected: 03/11/2020, TESTING) Virus Expires: 2020 Health Maintenance Due Date Last Done Comments DTaP,Tdap,and Td Vaccines (1 - 01/05/1992 Tdap) Depression Screening 1993 PAP SMEAR 2002 INFLUENZA VACCINE (#1) 2020 PNEUMOCOCCAL 0-64 YEARS COMBINED Aged Out No longer eligible based on SERIES patient's age to complete this topic documented as of this encounter Results Not on filedocumented in this encounter Visit Diagnoses Diagnosis Exposure to Covid-19 Virus - Primary documented in this encounter Additional Health Concerns Infection Onset Date Last Indicated Resolved Time COVID-19 Rule Out 03/11/2020 03/11/2020 documented as of this encounter Insurance Payer Benefit Plan / Subscriber ID Effective Dates Phone Addre ss Type Group [facility] [id number] 2018-Present PPO/POS (Work) documented as of this encounter
[2020-03-29 04:58] VITALS: BP 136/99; TEMP 98.4; O2SAT 99
--- NOTE | 2020-03-29 10:16 | EKG ---
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
== END 2020-03-28 18:55 | disposition home or self-care (01) ==
LOC: ER 16:36
DX: R07.9 Chest pain, unspecified (principal); Z88.3 Allergy status to other anti-infective agents
CPT/HCPCS: 93005; 85025; 80048; 36415; 82565; 84484; 71275; 71045; 99285; Q9967

== ENCOUNTER 2020-05-30 20:26 | Emergency (ER) | payer OTHER ==
--- OUTSIDE RECORDS SUMMARY | 2020-05-30 20:28 | XMS REPORT | Continuity of Care Document ---
:1980 Author Organization [facility] t Address [address] [place] [address] Care Team Providers Name Role Phone Pcp, Does Not Have A Attending Clinician Lab, Fam Pob I Attending Clinician [facility]available [facility] Attending Clinician Problems This patient has no known problems. Allergies, Adverse Reactions, Alerts This patient has no known allergies or adverse reactions. Medications This patient has no known medications. Procedures This patient has no known procedures. Encounters Start End Encounter Admission Attending Care Care Encounter Source Date/Time Date/Time Type Type Clinicians Facility Department ID 2020-04-07 2020-04-07 Telephone [facility] [id number] 00:00:00 00:00:00 Patient HARPAL [id number] Does Not [facility] [id number] Have A [id number] 2020-04-06 2020-04-06 Laboratory Lab, [facility] [id number] 15:40:51 16:00:51 Only Fam Pob I Health [id number] [place] [id number] Professio [phone] nal [address] 2020-03-13 2020-03-13 Telephone [facility] Em [id number] 00:00:00 00:00:00 Patient HARPAL [id number] Does Not HOSPITAL [id number] Have A [id number] 2020-03-13 2020-03-13 Telephone [facility] [id number] 00:00:00 00:00:00 [facility] [id number] [place] [id number] Professio [phone] nal 044 [address] 2020-03-11 2020-03-11 Laboratory Lab, Adc [facility] [id number] 16:40:34 17:00:34 Only Fam Pob I Health [id number] [place] [id number] Professio [phone] nal 044 [address] Results This patient has no known results.
--- OUTSIDE RECORDS SUMMARY | 2020-05-30 20:28 | XMS REPORT | Summary of Care ---
:1980 Author Organization [facility] - [facility] Address [address] [place] [id number] Care Team Providers Name Role Phone Pcp, Does Not Have A Primary Care Provider Reason for Visit Reason Comments LAB Exposure Encounter Details Date Type Department Care Team Description 04/06/2020 Laboratory Only [facility] Family Radha Michaud, SEO MARKETING SPECIALIST [address] [place] [id number] Suspected Covid-19 [facility], [facility] Fam Pob I Virus Infection [address] [place] [address] (Primary D x) [place] [address] Allergies Active Allergy Reactions Severity Noted Date Comments Clindamycin Rash 06/11/2018 documented as of this encounter (statuses as of 04/06/2020) Medications Medication Sig Dispensed Refills Start Date [...] as of this encounter (statuses as of 04/06/2020) Active Problems Not on filedocumented as of this encounter (statuses as of 04/06/2020) Social History Tobacco Use Types Packs/Day Years Used Date Current Every Day Smoker Cigarettes Smokeless Tobacco: Never Used Alcohol Use Drinks/Week oz/Week Comments No Sex Assigned at Date Recorded Not on file Job Start Date Occupation Industry Not on file Not on file Not on file Travel History Travel Start Travel End No recent travel history available. COVID-19 Exposure Response Date Recorded In the last month, have you been in contact with No / Unsure 04/06/2020 3:45 PM CDT someone who was confirmed or suspected to have Coronavirus / COVID-19? documented as of this encounter Last Filed Vital Signs Not on filedocumented in this encounter Plan of Treatment Name Type Priority Associated Diagnoses Order S chedule COVID-19 (PCR MOLECULAR LAB Routine Suspected Covid-1 9 Virus Expected: 04/06/2020, TESTING) Infection Expires: 2020 Health Maintenance Due Date Last Done Comments DTaP,Tdap,and Td Vaccines (1 - 01/05/1992 Tdap) Depression Screening 1993 PAP SMEAR 2002 INFLUENZA VACCINE (#1) 2020 PNEUMOCOCCAL 0-64 YEARS COMBINED Aged Out No longer eligible based on SERIES patient's age to complete this topic documented as of this encounter Results Not on filedocumented in this encounter Visit Diagnoses Diagnosis Suspected Covid-19 Virus Infection - [facility] documented in this encounter Additional Health Concerns Infection Onset Date Last Indicated Resolved Time COVID-19 Confirmed 03/11/2020 03/11/2020 COVID-19 Rule Out 04/06/2020 04/06/2020 documented as of this encounter Insurance Payer Benefit Plan / Subscriber ID Effective Dates Phone Addre ss Type Group [facility] [id number] 2018-Present PPO/POS (Work) documented as of this encounter
--- OUTSIDE RECORDS SUMMARY | 2020-05-30 20:29 | XMS REPORT | Summary of Care ---
:1980 Author Organization [facility] - [facility] Address [address] [place] [address] Care Team Providers Name Role Phone Pcp, Does Not Have A Primary Care Provider Reason for Visit Reason Comments Results Encounter Details Date Type Department Care Team Description 04/07/2020 Telephone ACCESS [facility]ENTER Pcp, Patient Does Not Results [address] [facility] [place] [address] [address] [facility] [phone] [place] [address] Allergies Active Allergy Reactions Severity Noted Date Comments Clindamycin Rash 06/11/2018 documented as of this encounter (statuses as of 04/07/2020) Medications Medication Sig Dispensed Refills Start Date [...] as of this encounter (statuses as of 04/07/2020) Active Problems Not on filedocumented as of this encounter (statuses as of 04/07/2020) Social History Tobacco Use Types Packs/Day Years [...] 03/11/2020 03/11/2020 COVID-19 Rule Out 04/06/2020 04/06/2020 04/07/2020 3: 51 PM CDT documented as of this encounter Insurance Payer Benefit Plan / Subscriber ID Effective Dates Phone Addre ss Type Group [facility] [id number] 2018-Present PPO/POS documented as of this encounter
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
[2020-05-30 21:21] LABS: Urine Blood 1+ (NEG); Urine Glucose NEGATIVE (NEG); Urine Protein NEGATIVE (NEG); Urine Specific Gravity 1.025 (1.005-1.030)
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
[2020-05-30 22:32] VITALS: O2SAT 100
[2020-05-30 22:33] VITALS: TEMP 98.1
[2020-05-30 22:35] VITALS: BP 127/90
== END 2020-05-30 22:25 | disposition home or self-care (01) ==
LOC: ER 20:26
DX: S20.211A Contusion of right front wall of thorax, initial encounter (principal); S10.83XA Contusion of other specified part of neck, initial encounter; Y04.2XXA Assault by strike against or bumped into by another person, initial encounter; Y93.9 Activity, unspecified; Y92.9 Unspecified place or not applicable; Z88.3 Allergy status to other anti-infective agents; F17.210 Nicotine dependence, cigarettes, uncomplicated
CPT/HCPCS: 71250; 72125; 81003; 81025; 99283